=== PATIENT | male | born 1965 | race Caucasian/White ===

== ENCOUNTER 2019-11-19 07:57 | Day surgery (SDC) | payer BC ==
--- NOTE | 2019-11-19 06:44 | History and Physical - [facility] ---
CHIEF COMPLAINT/HISTORY OF CHIEF COMPLAINT: This patient presents with a history of an intractable lumbar radiculopathy. Due to the failure of therapy on 10/23/19 a spinal cord stimulator trial was conducted with 75-85% pain control. Due to the failure of other therapies and the success of the trial, the patient presents today for implantation of a permanent system. PAST MEDICAL HISTORY: Noncontributory. PAST SURGICAL HISTORY: None. EMPLOYMENT STATUS: Works full-time. MEDICATIONS ON ADMISSION: None. ALLERGIES: None. FAMILY/PSYCHOSOCIAL HISTORY: Social history - Noncontributory. Family history - None listed. SYSTEMS REVIEW: The patient is appropriate in no acute distress. The remainder of the systems review is positive for headaches. PHYSICAL EXAMINATION: Height is 5', weight is 180. No vital signs. HEENT: Within normal limits. LUNGS: Clear. HEART: Rapid and regular. ABDOMEN: Nontender. MUSCULOSKELETAL: Examination of the musculoskeletal system shows pain and tenderness throughout the lumbar spine ranging into both legs, left greater than right. Ambulation - No assistive device utilized. No motor or sensory abnormalities noted. NEUROLOGIC: Cranial nerves are intact. IMPRESSION: LUMBAR RADICULOPATHY, ICD-10 CODE M54.16 AND M54.17. PLAN: The patient is here after a failure of all therapies and the success of a stimulator trial for implantation of a permanent system. The procedure will be considered outpatient although an overnight stay will be evaluated. JOB NUMBER: [id number] MTDD
[~2019-11-19 07:57] MED LIST: ACETAMINOPHEN 1,000 MG/100 ML BTL IVPB ONE; CEFAZOLIN 2 Gram 2 GM/50 ML BAG IVPB ONE; FAMOTIDINE 20MG TABLET PO ONE; MECLIZINE 25 MG TABLET PO ONE; METOCLOPRAMIDE 10 MG TABLET PO ONE
[2019-11-19] MEDS ORDERED: LIDOCAINE 2% MDV (20MG/ML) 20ML VIAL IV ONE (07:58)
[2019-11-19] MEDS ORDERED: PROPOFOL 10 MG/ML VIAL IV ONE (07:58)
[2019-11-19] MEDS ORDERED: MIDAZOLAM HCL 2MG/2ML VIAL IV ONE (07:58)
[2019-11-19] MEDS ORDERED: FENTANYL PF 100MCG/2ML VIAL IV ONE (07:58)
[2019-11-19] MEDS ORDERED: RINGERS SOLUTION,LACTATED 1,000 ML IV ONE ×2 (08:49→10:35)
[2019-11-19] MEDS ORDERED: LIDOCAINE 1% W/EPI 1:100,000 MDV 20 ML VIAL SQ ONE (10:36)
[2019-11-19] MEDS ORDERED: CEFAZOLIN 1G VIAL IR ONE (10:36)
[2019-11-19] MEDS ORDERED: BUPIVACAINE 0.5% W/EPI MPF 30 ML VIAL SQ ONE (10:36)
[2019-11-19] MEDS ORDERED: OXYCODONE/APAP 10MG-325MG TABLET PO ONE (11:12)
--- NOTE | 2019-11-19 12:48 | Operative Note - [facility] ---
DATE OF SURGERY: 11/19/2019 PREOPERATIVE DIAGNOSIS: LUMBAR RADICULOPATHY, ICD-10 CODE M54.16 AND M54.17. OPERATION: 1. FLUOROSCOPICALLY GUIDED EPIDURAL ACCESS LEFT T11-T12, PLACEMENT OF SPINAL CORD STIMULATOR LEAD 1 [employer] 16, 6-ELECTRODES POSITIONED LEFT T7. 2. FLUOROSCOPICALLY GUIDED EPIDURAL ACCESS LEFT T12-L1, PLACEMENT OF SPINAL CORD STIMULATOR LEAD 2 [employer] 16, 6-ELECTRODES POSITIONED RIGHT T7. 3. COMPLEX PROGRAMMING OF LEAD 1 OVER TWENTY MINUTES FOLLOWED BY COMPLEX PROGRAMMING OF LEAD 2 OVER TWENTY MINUTES. 4. INCISION, SUBCUTANEOUS DISSECTION, ANCHORING OF LEAD1 AND LEAD 2 TO SUPRASPINOUS FASCIA WITH A [employer] LOCKING ANCHOR AND NONABSORBABLE SUTURE. 5. INCISION, SUBCUTANEOUS DISSECTION, CREATION OF SUBCUTANEOUS POUCH AT THE LEFT FLANK FOR PLACEMENT OF GENERATOR [employer] PROGRAMM[employer] RECHARGEABLE WAVEWRITER. 6. TUNNELLING BETWEEN MIDLINE POUCH AND GENERATOR POUCH EXTENDING LEADS INTO THE GENERATOR POUCH, EACH LEAD INTERFACED TO GENERATOR. 7. PLACEMENT OF GENERATOR INTO POUCH, PLACEMENT OF LEADS INTO POUCH, CLOSURE OF BOTH INCISIONS USING STRATAFIX SUTURE 2-0 FASCIA AND 3-0 SKIN. DERMABOND CLOSURE. 8. COMPLEX RECOVERY ROOM PROGRAMMING INTERNAL GENERATOR HOME USE TWO STIMULATORS TWENTY MINUTES. SURGEON: Bernardino Ratliff D.O. INDICATION: This patient presents with a history of an intractable lumbar radiculopathy. Due to the failure of therapies and the success of our office based trial, he is here for permanent implantation of system. PROCEDURE: Intravenous line, vital sign monitoring, IV sedation, prepped and draped, sterile technique. Under imaging with the patient prone, the epidural interspace from the left at T11-T12 and T12-L1 were both marked, infiltrated, using a curved access Epimed needle with loss of resistance the space was accessed. At T11-T12 the spinal cord stimulator Lead 1 [employer] 16, 6 electrodes was positioned left at T7 with the access at T12-L1 spinal cord stimulator Lead 2 [employer] 16, 6-electrodes positioned right at T7. Complex programming Lead 1 over twenty minutes followed by complex programming Lead 2 over twenty minutes resulting in a complete pattern of stimulation across the back and into the legs. The patient was indicating we hit all of the areas of the pain. The skin below both needles was then infiltrated with local, an incision made and subcutaneous dissection was conducted to the supraspinous fascia. Each of the needles was removed and leads were anchored to the supraspinous fascia with a [employer] locking anchor nonabsorbable suture. At the left flank at a site picked by the patient for the generator the skin was infiltrated, incision made, and subcutaneous dissection was conducted to form a pouch of suitable size and depth for the generator. Antibiotic irrigation, Bovie for hemostasis. A tunnelling tool was used to carry the leads into the generator pouch and then each lead was interfaced with the generator. The generator was placed into the pouch, the leads were placed into their own pouch, and then both incisions were closed using Stratafix suture 2-0 fascia and 3-0 skin. Dermabond closure was then used to approximate the edges of both wounds. He was transferred to the Recovery Room stable. There were no side effects from the procedure or sedation. When fully awake and alert complex programming of the internal generator over twenty minutes in the Recovery Room was then performed reestablishing stimulation pain control to all of the appropriate areas. The patient and friend were instructed on the use of the system and clearing of error messaging and then prepared for discharge. DISCHARGE INSTRUCTIONS: 1. The sites are to remain clean and dry although the Dermabond will allow showering, he should not sit in water. 2. Standard medications will be resumed including the antibiotic Levaquin 500 mg once a day for fourteen days. 3. A script has been provided for [facility] for incisional pain control. 4. All other instructions have been provided. Numbers to contact if problems given. Office to contact the patient in 12-24 hours to set up a time in 7-10 days for us to evaluate the sites. Through this period of time he is to keep his activities controlled. Limit bend, lift, push and pull. All other instructions are provided. JOB NUMBER: [id number] MTDD
--- NOTE | 2019-11-20 16:15 | RADIOLOGY REPORT ---
EXAMINATION: Thoracolumbar Spine Single View EXAM DATE: 11/19/2019 11:00 AM TECHNIQUE: Frontal portable view of the thoracolumbar spine INDICATION: S/P SCS IMPLANT LEADS AND GENERATOR COMPARISON: No relevant comparison studies ENCOUNTER: Initial FINDINGS/IMPRESSION: Spinal cord stimulator leads project over the thoracolumbar spine with electrodes extending from T7 s uperior endplate to T9 inferior endplate. Left lower quadrant battery pack. Dictated by: Maggy Ramon MD on 11/20/2019 4:11 PM. .
== END 2019-11-19 11:43 | disposition home or self-care (01) ==
LOC: SUR 07:57
PROVIDERS: ATTEND Pain Medicine Interventional Pain Medicine
DX: M54.16 Radiculopathy, lumbar region (principal); M54.17 Radiculopathy, lumbosacral region
CPT/HCPCS: 72020; 95972; C1820; C1883; J0690; J7120